=== PATIENT | male | born 1980 | race Two or more races ===

== ENCOUNTER 2017-06-02 10:34 | Emergency (ER) | payer OTHER ==
[~2017-06-02] VITALS: Ht 160 cm; Wt 56.8 kg
[2017-06-02 11:43] LABS: CALCIUM 9.3 mg/dL (8.5-10.1); CARBON DIOXIDE 32.3 mmol/L (21-32); CHLORIDE SERUM 105 mmol/L (98-107); CREATININE SERUM 0.9 mg/dL (0.7-1.3); GFR1 > 60 mL/min; GLUCOSE SERUM 94 mg/dL (74-106); POTASSIUM SERUM 4.1 mmol/L (3.5-5.1); SODIUM SERUM 142 mmol/L (136-145)
[2017-06-02 11:44] LABS: BASOPHIL % 0.5 % (0-2); PLATELET COUNT 231 x10^3mcL (130-400); RED CELL DISTRIBUTION WIDTH 12.5 % (11.5-14.5)
[2017-06-02 11:48] LABS: ALKALINE PHOSPHATASE 105 U/L (46-116); ALT/SGPT 64 U/L (16-63); AMYLASE 55 U/L (25-115); AST/SGOT 24 U/L (15-37); BILIRUBIN TOTAL 0.97 mg/dL (0.20-1.00); LIPASE 111 IU/L (73-393); TOTAL PROTEIN, SERUM 7.9 g/dL (6.4-8.2)
[2017-06-02 13:30] VITALS: BP 116/76
== END 2017-06-02 13:30 | disposition home or self-care (01) ==
LOC: ED 10:34
PROVIDERS: Emergency Medicine
DX: R10.11 Right upper quadrant pain (principal)
CPT/HCPCS: 36415; 83880; J1885; Q0092